=== PATIENT | male | born 1990 | race Caucasian/White ===

== ENCOUNTER 2017-06-20 07:00 | Emergency (ER) | payer OTHER ==
--- NOTE | 2017-06-20 07:18 | EDPHY ---
HPI/HX/ROS/PE/MDM Narrative: CHIEF COMPLAINT: Right hand injury HISTORY OF PRESENT ILLNESS: The patient is a 27 y/o male complaining of a right hand injury after having the 3rd and 4th digit tips crushed between two pieces of metal plate. There was a rough edge on one of the pieces of metal. After the initial injury he noticed some swelling and then developed minor numbness in his 3rd finger. He did not ice the injury last night but he did have ibuprofen which provided mild relief. No fever, chills, chest pain, shortness of breath, palpitations, vomiting, diarrhea, urinary complaints, headache, lightheadedness. REVIEW OF SYSTEMS: Aside from elements discussed in the HPI, a comprehensive 10-point review of systems was reviewed and is negative. 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 FOCUSED EXAM OF RIGHT HAND: Ecchymosis and swelling of the distal pad on the 3rd and 4th finger at the distal phalanx, slightly delayed capillary refill, tendernss to palp on both fingers, 3rd greater than 4th. 3rd digit: 0.5cm skin tear at DIP with swelling, nonsuturable, bleeding controlled. Portions of this note were transcribed by a medical billing coder. I personally performed a history, physical exam, medical decision making, and confirmed accuracy of information the transcribed note. ED Course: The patient is a 27 y/o male presenting with a right hand injury after having the 3rd and 4th digit tips crushed between two pieces of metal plate. On exam his 3rd and 4th digit are dusky, ecchymotic, and swollen. There is a 3rd digit crush injury with a 0.5cm skin tear at the DIP. Right hand x-ray ordered. 1gm PO Tylenol and 600mg PO Ibuprofen administered. 0810: I reviewed patient's x-ray, there is a fracture to the distal akhil of the 3rd and 4th digits. 0817: Reassessed patient and discussed imaging findings. Patient will be placed in a splint and I have advised him to ice, use NSAIDS, take hydrocodone as prescribed for pain, and take Keflex for open fracture. Return precautions provided; patient is comfortable with this plan. Procedure: Splint placement. An aluminum splint was applied to the right 3rd and 4th digit by the tech. After application of the splint I returned and re-examined the patient. The splint was adequately immobilizing the joint and distal to the splint the patient's circulation and sensation was intact. MDM: Differential diagnosis for the patient's injury was considered including but not limited to contusion, abrasion, laceration, fracture, open fracture, or dislocation. - Data Points Imaging: I viewed and interpreted images myself Medications Given: Discontinued Medications Acetaminophen (Tylenol) 1,000 mg PO EDNOW ONE Stop: 06/20/17 07:44 Last Admin: 06/20/17 07:47 Dose: 1,000 mg Ibuprofen (Motrin) 600 mg PO EDNOW ONE Stop: 06/20/17 07:44 Last Admin: 06/20/17 07:47 Dose: 600 mg General Time Seen by Provider: 06/20/17 07:15 Initial Vital Signs: Initial Vital Signs Temperature (C) 37.0 C 06/20/17 07:08 Heart Rate 73 06/20/17 07:08 Respiratory Rate 16 06/20/17 07:08 Blood Pressure 124/69 H 06/20/17 07:08 O2 Sat (%) 98 06/20/17 07:08 O2 Delivery Mode Room Air Allergies/Adverse Reactions: No Known Allergies Allergy (Unverified 06/20/17 07:18) Home Medications: Medication Instructions Recorded Cephalexin [Keflex (RX)] 500 mg PO QID 7 Days cap 06/20/17 Hydrocodone/APAP 5/325 [Fletcher 1 tab PO Q6H PRN #10 tab 06/20/17 5/325 (RX)] Departure - Departure Disposition: Home, Routine, Self-Care Clinical Impression: Fracture, finger, distal phalanx Qualifiers: Encounter type: initial encounter Finger: middle finger Fracture type: open Fracture alignment: nondisplaced Laterality: right Qualified Code(s): S62.662B - Nondisplaced fracture of distal phalanx of right middle finger, initial encounter for open fracture Fingers fractured Qualifiers: Encounter type: initial encounter Finger: ring finger Fracture type: closed Phalanx: distal Fracture alignment: nondisplaced Laterality: right Qualified Code(s): S62.664A - Nondisplaced fracture of distal phalanx of right ring finger , initial encounter for closed fracture Condition: Good Instructions: Finger Fracture (ED) Additional Instructions: Mainstay of therapy is rest, ice, immobilization, elevation, and nonsteroidal anti-inflammatories for pain and to decrease swelling. Apply ice for 20-30 minutes every 2-3 hours for the next 48 hours. I recommend Ibuprofen (Motrin,Advil) or Naproxen Sodium (Aleve) for pain and anti-inflammatory effects. You may take either one, but do not take both. Your dose is: Ibuprofen 600mg every 6-8 hours with food. OR Naproxen Sodium (Aleve) 220mg every 12 hours. Take hydrocodone as needed for severe pain. Take Keflex as prescribed. Keep splint in place as needed for comfort. Do activities as tolerated. Followup with the your PCP in the next week for unimproved symptoms. Return to the emergency department for worsening pain, swelling, numbness, weakness or other concerns. Wear splint at all times until reevaluation. Referrals: [facility],. [Clinic] - As per Instructions Prescriptions: Cephalexin [Keflex (RX)] 500 mg PO QID 7 Days cap Hydrocodone/APAP 5/325 [Fletcher 5/325 (RX)] 1 tab PO Q6H PRN #10 tab PRN Reason: Pain Report Scribed for: Charlotte Patiño Report Scribed by: Meghann Quiñones Date of Report: 06/20/17 Time of Report: 07:18
[2017-06-20] MEDS ORDERED: IBUPROFEN 600 MG TAB PO ONE (07:43)
[2017-06-20] MEDS ORDERED: ACETAMINOPHEN 500 MG TAB PO ONE (07:43)
[2017-06-20 09:02] VITALS: BP 105/68
== END 2017-06-20 09:01 | disposition home or self-care (01) ==
DX: S62.662B Nondisplaced fracture of distal phalanx of right middle finger, initial encounter for open fracture (principal); S62.664A Nondisplaced fracture of distal phalanx of right ring finger, initial encounter for closed fracture; W23.1XXA Caught, crushed, jammed, or pinched between stationary objects, initial encounter; Y99.0 Civilian activity done for income or pay; Y93.89 Activity, other specified
CPT/HCPCS: L3925